=== PATIENT | female | born 1990 | race Caucasian/White ===

== ENCOUNTER 2019-06-02 22:22 | Emergency (ER) | payer SELFPAY ==
[~2019-06-02] VITALS: Ht 154.9 cm; Wt 51.0 kg
[~2019-06-02 22:22] MED LIST: DIPH25CA58 PO; MEDR150D3 IM; METH-37 PO; NAPR-514 PO
--- NOTE | 2019-06-02 22:27 | ED.ADGEN ---
Past History Past Medical History: STD Past Surgical History: Smoking: Non-smoker Alcohol Use: None Drug Use: None Adult General Chief Complaint Chief Complaint ".. I was in bed the other night... Sunday.. and I felt something bite me.. and I slapped it.. .. I never seen what it was .. but the spot started itching Sunday.. and today.. it is red.. and got these little blisters.." HPI HPI Patient is a 28 year old female who presents with above hx and complaints of insect bite on left posterior leg. Areas developed a quarter-sized erythemic blister area. Appearance is somewhat consistent with a brown recluse bite. No striations. No adenopathy. Patient does not remember her last tetanus but has been in excess of 10 years. Patient denies any history of immunosuppression. No history of ill contacts. No history of travel. Review of Systems Review of Systems Constitutional: Denies fever or chills [] Eyes: Denies change in visual acuity, redness, or eye pain [] HENT: Denies nasal congestion or sore throat [] Respiratory: Denies cough or shortness of breath [] Cardiovascular: No additional information not addressed in HPI [] GI: Denies abdominal pain, nausea, vomiting, bloody stools or diarrhea [] : Denies dysuria or hematuria [] Musculoskeletal: Denies back pain or joint pain [] Integument: Complaints of insect bite Neurologic: Denies headache, focal weakness or sensory changes [] Endocrine: Denies polyuria or polydipsia [] All other systems were reviewed and found to be within normal limits, except as documented in this note. Family History Family History Noncontributory Current Medications Current Medications Current Medications Medications (Trade) Dose Ordered Sig/Jossy Start Time Stop Time Status Last Admin Dose Admin Bacitracin (Bacitracin Topical Pkt) 1 pkt 1X ONCE 06/02/19 23:30 06/03/19 00:01 DC Diphtheria/ Tetanus/Acell Pertussis (Boostrix) 0.5 ml ONCE ONCE 06/02/19 23:30 06/02/19 23:31 DC Neomycin/ Polymyxin/ Bacitracin (Triple Antibiotic Ointment) 1 pkt 1X ONCE 06/03/19 00:00 06/03/19 00:54 DC 06/03/19 00:06 1 PKT Trimethoprim/ Sulfamethoxazole (Bactrim Ds) 1 tab 1X ONCE 06/02/19 23:30 06/02/19 23:31 DC 06/03/19 00:06 1 TAB Allergies Allergies Allergies Coded Allergies Type Severity Reaction Last Updated Verified No Known Drug Allergies 03/12/14 No Physical Exam Physical Exam Constitutional: Well developed, well nourished, no acute distress, non-toxic appearance. [] HENT: Normocephalic, atraumatic, bilateral external ears normal, oropharynx moist, no oral exudates, nose normal. [] Eyes: PERRLA, EOMI, conjunctiva normal, no discharge. [] Neck: Normal range of motion, no tenderness, supple, no stridor. [] Cardiovascular:Heart rate regular rhythm, no murmur [] Lungs & Thorax: Bilateral breath sounds clear to auscultation [] Abdomen: Bowel sounds normal, soft, no tenderness, no masses, no pulsatile masses. [] Skin: Warm, dry, no erythema, quarter size red blistered lesion posterior left thigh. Back: No tenderness, no CVA tenderness. [] Extremities: No tenderness, no cyanosis, no clubbing, ROM intact, no edema. [] Neurologic: Alert and oriented X 3, normal motor function, normal sensory function, no focal deficits noted. [] Psychologic: Affect anxious, judgement normal, mood normal. [] Current Patient Data Vital Signs Vital Signs Date Time Temp Pulse Resp B/P (MAP) Pulse Ox O2 Delivery O2 Flow Rate FiO2 06/03/19 00:15 70 18 114/71 (85) 100 Room Air 06/02/19 22:22 98.5 EKG EKG [] Radiology/Procedures Radiology/Procedures [] Course & Med Decision Making Course & Med Decision Making Pertinent Labs and Imaging studies reviewed. (See chart for details). Patient she apply Polysporin to bite area 4 times a day. Take Bactrim DS twice day. Follow-up primary care. Return if any concerns. Take Tylenol or ibuprofen for discomfort. Take Benadryl 25-50 mg 4 times a day for itching. [] Final Impression Final Impression 1. Insect bite suspect Brown recluse 2. Cellulitis[] Dragon Disclaimer Dragon Disclaimer This electronic medical record was generated, in whole or in part, using a voice recognition dictation system. Dragon Disclaimer This chart was dictated in whole or in part using Voice Recognition software in a busy, high-work load, and often noisy Emergency Department environment. It may contain unintended and wholly unrecognized errors or omissions. NIKO HARTMAN MD Jun 02, 2019 22:27
[2019-06-02] MEDS ORDERED: SULF1TAB24 PO (23:11)
[2019-06-02] MEDS ORDERED: DIPHTH,PERTUSS(ACELL),TET TOX 0.5 ML DISP.SYRIN. VAX IM ONE (23:30)
[2019-06-02] MEDS ORDERED: BACITRACIN ZINC TOPICAL OINT PACKET. TP ONE (23:30)
[2019-06-02] MEDS ORDERED: SMZ/TMP 800/160MG TABLET. PO ONE (23:30)
[2019-06-02] MEDS ORDERED: NEOMY/BACITR/POLYMYXIN OINT PACKET. TP ONE (23:58)
[2019-06-03] MEDS ORDERED: NEOMY/BACITR/POLYMYXIN OINT PACKET. TP ONE
[2019-06-03 00:15] VITALS: BP 114/71
== END 2019-06-03 00:15 | disposition home or self-care (01) ==
LOC: ER 22:22
DX: T63.331A Toxic effect of venom of brown recluse spider, accidental (unintentional), initial encounter (principal); L03.116 Cellulitis of left lower limb; Y92.89 Other specified places as the place of occurrence of the external cause
CPT/HCPCS: 99283

== ENCOUNTER 2019-06-07 15:23 | Emergency (ER) | payer SELFPAY ==
[~2019-06-07] VITALS: Ht 154.9 cm; Wt 51.0 kg
[~2019-06-07 15:23] MED LIST changes: +SULF1TAB24 PO
[2019-06-07 15:32] VITALS: BP 107/58
[2019-06-07] MEDS ORDERED: HYDR25TA PO (15:56)
[2019-06-07] MEDS ORDERED: MELO7.5T29 PO (15:56)
--- NOTE | 2019-06-07 15:56 | PHYS DOC ---
Past History Past Medical History: No Pertinent History Past Surgical History: Smoking: Non-smoker Alcohol Use: None Drug Use: None Adult General Chief Complaint Chief Complaint: INSECT BITE HPI HPI Patient is a 28-year-old female presents for follow-up of a "spider bite" that happened approximately a week ago. She was seen approximately 5 days ago and started on Bactrim for this. She is been treating with Neosporin antibiotic ointment and keeping the wound covered since that time. She is concerned because it is not significantly improving. There is watery drainage. No fever. No difficulty breathing. No abdominal cramping. No purulent drainage.[] Review of Systems Review of Systems Constitutional: Denies fever or chills [] Eyes: Denies change in visual acuity, redness, or eye pain [] HENT: Denies nasal congestion or sore throat [] Respiratory: Denies cough or shortness of breath [] Cardiovascular: No chest pain or palpitations[] GI: Denies abdominal pain, nausea, vomiting, bloody stools or diarrhea [] : Denies dysuria or hematuria [] Musculoskeletal: Denies back pain or joint pain [] Integument: See history of present illness[] Neurologic: Denies headache, focal weakness or sensory changes [] Endocrine: Denies polyuria or polydipsia [] All other systems were reviewed and found to be within normal limits, except as documented in this note. Allergies Allergies Allergies Coded Allergies Type Severity Reaction Last Updated Verified No Known Drug Allergies 03/12/14 No Physical Exam Physical Exam Constitutional: Well developed, well nourished, no acute distress, non-toxic appearance. [] HENT: Normocephalic, atraumatic, bilateral external ears normal, oropharynx moist, no oral exudates, nose normal. [] Eyes: PERRLA, EOMI, conjunctiva normal, no discharge. [] Neck: Normal range of motion, no tenderness, supple, no stridor. [] Cardiovascular:Heart rate regular rhythm, no murmur [] Lungs & Thorax: Bilateral breath sounds clear to auscultation [] Abdomen: Bowel sounds normal, soft, no tenderness, no masses, no pulsatile masses. [] Skin: Warm, dry, there is a 1 cm diameter region of vesicles posterior medial aspect of her left thigh. There is no inguinal lymphadenopathy. Watery drainage. No purulent drainage. Local erythema. Mild induration, no abscess. [] Back: No tenderness, no CVA tenderness. [] Extremities: No tenderness, no cyanosis, no clubbing, ROM intact, no edema. [] Neurologic: Alert and oriented X 3, normal motor function, normal sensory function, no focal deficits noted. [] Psychologic: Affect normal, judgement normal, mood normal. [] Current Patient Data Vital Signs Vital Signs Date Time Temp Pulse Resp B/P (MAP) Pulse Ox O2 Delivery O2 Flow Rate FiO2 06/07/19 15:32 98.6 84 18 97 Room Air EKG EKG [] Radiology/Procedures Radiology/Procedures [] Course & Med Decision Making Course & Med Decision Making Pertinent Labs and Imaging studies reviewed. (See chart for details) Medical decision making: There is no abscess, no evidence of black nor brown recluse envenomation, staph scalded skin syndrome, toxic epidermal necrolysis, nor Alex-Ryan syndrome. This may have been triggered by an insect and will provide antihistamine therapy. We'll also provide nonsteroidal anti-inflammatory medication for inflammatory processes rather than pain. Will have patient continue her current antibiotic therapy. Medical decision making: Patient arrived, was placed in bed, and tolerated exam well. Findings were discussed with the patient who voiced understanding. All questions were answered. She was discharged in improved condition.[] Dragon Disclaimer Dragon Disclaimer This electronic medical record was generated, in whole or in part, using a voice recognition dictation system. Departure Departure: Impression: Primary Impression: Insect bite Disposition: HOME, SELF-CARE Condition: IMPROVED Referrals: PCP,RANJIT (PCP) Patient Instructions: Insect Bite, Spider Bite Additional Instructions: Follow-up with your regular doctor in 2 days. If you do not have a regular doctor a list of local clinics will be provided. Continue your antibiotic as prescribed. Add the additional medicines from today, and take as prescribed. Return to the ER if you develop purulent drainage, fever of more than 101�, or any other concerns. Scripts Meloxicam (MELOXICAM) 7.5 Mg Tablet 7.5 MG PO DAILY for anti-inflammatory, #20 TAB Prov: LIZ BROWN DO 06/07/19 Hydroxyzine Hcl (HYDROXYZINE HCL) 25 Mg Tablet 1 TAB PO TID for antihistamine, #30 TAB Prov: LIZ BROWN DO 06/07/19 Problem Qualifiers Primary Impression: Insect bite Encounter type: subsequent encounter Site of insect bite: thigh Laterality: left Qualified Codes: S70.362D - Insect bite (nonvenomous), left thigh, subsequent encounter; W57.XXXD - Bitten or stung by nonvenomous insect and other nonvenomous arthropods, subsequent encounter LIZ BROWN DO Jun 07, 2019 15:56
== END 2019-06-07 16:02 | disposition home or self-care (01) ==
LOC: ER 15:23
DX: T63.301D Toxic effect of unspecified spider venom, accidental (unintentional), subsequent encounter (principal)
CPT/HCPCS: 99283

== ENCOUNTER 2019-10-20 08:21 | Emergency (ER) | payer SELFPAY ==
[~2019-10-20] VITALS: Ht 154.9 cm; Wt 51.0 kg
[~2019-10-20 08:21] MED LIST changes: +HYDR25TA PO; +MELO7.5T29 PO
--- NOTE | 2019-10-20 09:08 | RAD ---
EXAM: Left ankle, 3 views. HISTORY: Fall. COMPARISON: None. FINDINGS: 3 views of the left ankle are obtained. There is no fracture, dislocation or subluxation. The ankle mortise is intact. There is no osteochondral lesion. IMPRESSION: No acute osseous finding. Electronically signed by: Nora Sams MD (10/20/2019 9:05 AM) [facility] [place]
--- NOTE | 2019-10-20 09:15 | PHYS DOC ---
Past History Past Medical History: No Pertinent History Past Surgical History: Smoking: Non-smoker Alcohol Use: None Drug Use: None Adult General Chief Complaint Chief Complaint: LOWEREXTREMITY INJURY [facility] HPI 29-year-old female presents with left lateral ankle pain. The patient was walking up some steps when she slipped and fell. She rolled her foot medially. She felt like she heard/felt a popping sensation. She was able to walk after that. She has a limp. She went ahead and went to work. After she got to work it was more painful to walk on it and she became concerned about a more serious injury. This wish came to the emergency room. It is mildly swollen. She denies any other injuries or complaints. Review of Systems Review of Systems Constitutional: Denies fever or chills [] Eyes: Denies change in visual acuity, redness, or eye pain [] HENT: Denies nasal congestion or sore throat [] Respiratory: Denies cough or shortness of breath [] Cardiovascular: No additional information not addressed in HPI [] GI: Denies abdominal pain, nausea, vomiting, bloody stools or diarrhea [] : Denies dysuria or hematuria [] Musculoskeletal: Left lateral ankle pain[] Integument: Denies rash or skin lesions [] Neurologic: Denies headache, focal weakness or sensory changes [] Endocrine: Denies polyuria or polydipsia [] All other systems were reviewed and found to be within normal limits, except as documented in this note. Allergies Allergies Allergies Coded Allergies Type Severity Reaction Last Updated Verified No Known Drug Allergies 03/12/14 No Physical Exam Physical Exam Constitutional: Well developed, well nourished, no acute distress, non-toxic appearance. [] HENT: Normocephalic, atraumatic, bilateral external ears normal, oropharynx moist, no oral exudates, nose normal. [] Eyes: PERRLA, EOMI, conjunctiva normal, no discharge. [] Neck: Normal range of motion, no tenderness, supple, no stridor. [] Cardiovascular:Heart rate regular rhythm, no murmur [] Lungs & Thorax: Bilateral breath sounds clear to auscultation [] Abdomen: Bowel sounds normal, soft, no tenderness, no masses, no pulsatile masses. [] Skin: Warm, dry, no erythema, no rash. [] Back: No tenderness, no CVA tenderness. [] Extremities: Tenderness over the left ATFL. Mild swelling, no ecchymosis or obvious deformity.[] Neurologic: Alert and oriented X 3, normal motor function, normal sensory functi on, no focal deficits noted. [] Psychologic: Affect normal, judgement normal, mood normal. [] Current Patient Data Vital Signs Vital Signs Date Time Temp Pulse Resp B/P (MAP) Pulse Ox O2 Delivery O2 Flow Rate FiO2 10/20/19 08:40 74 18 105/55 (72) 100 EKG EKG [] Radiology/Procedures Radiology/Procedures [] Course & Med Decision Making Course & Med Decision Making Pertinent Labs and Imaging studies reviewed. (See chart for details) [] Dragon Disclaimer Dragon Disclaimer This electronic medical record was generated, in whole or in part, using a voice recognition dictation system. Departure Departure: Impression: Primary Impression: Left ankle sprain Disposition: HOME, SELF-CARE Condition: STABLE Referrals: PCP,NO (PCP) Patient Instructions: Ankle Sprain, Acute, with Phase I Rehab-SportsMed Problem Qualifiers Primary Impression: Left ankle sprain Encounter type: initial encounter Involved ligament of ankle: anterior talofibular ligament Qualified Codes: S93.492A - Sprain of other ligament of left ankle, initial encounter ASTER FUNK DO Oct 20, 2019 09:15
== END 2019-10-20 09:16 | disposition home or self-care (01) ==
LOC: ER 08:21
DX: S93.402A Sprain of unspecified ligament of left ankle, initial encounter (principal); W01.0XXA Fall on same level from slipping, tripping and stumbling without subsequent striking against object, initial encounter; Y93.01 Activity, walking, marching and hiking; Y92.89 Other specified places as the place of occurrence of the external cause; Y99.8 Other external cause status
CPT/HCPCS: 73610; 99284

== ENCOUNTER 2020-05-09 18:20 | Emergency (ER) | payer MEDICAID ==
[~2020-05-09] VITALS: Ht 154.9 cm; Wt 51.8 kg
[2020-05-09 18:20] VITALS: BP 105/67
--- NOTE | 2020-05-09 18:40 | PHYS DOC ---
Past History Past Medical History: No Pertinent History Past Surgical History: Smoking: Non-smoker Alcohol Use: None Drug Use: None General Adult EDM: Chief Complaint: FOREIGNBODY EAR HPI: HPI: Patient is a 29 year old female who presents for evaluation of a possible foreign body in her left ear. Patient has large fingernail extensions and was afraid she lost one in her left ear after scratching it. They are salmon-colored. This injury occurred about 1 hour prior to arrival. Patient has no bleeding or discharge from the ear. Patient does not have any hearing changes Review of Systems: Review of Systems: Constitutional: Denies fever or chills Eyes: Denies change in visual acuity HENT: Denies nasal congestion or sore throat Respiratory: Denies cough or shortness of breath Cardiovascular: Denies chest pain or edema GI: Denies abdominal pain, nausea, vomiting, bloody stools or diarrhea : Denies dysuria Musculoskeletal: Denies back pain or joint pain Integument: Denies rash Neurologic: Denies headache, focal weakness or sensory changes Endocrine: Denies polyuria or polydipsia Lymphatic: Denies swollen glands Psychiatric: Denies depression or anxiety Heart Score: Risk Factors: Risk Factors: DM, Current or recent (<one month) smoker, HTN, HLP, family history of CAD, obesity. Risk Scores: Score 0 - 3: 2.5% MACE over next 6 weeks - Discharge Home Score 4 - 6: 20.3% MACE over next 6 weeks - Admit for Clinical Observation Score 7 - 10: 72.7% MACE over next 6 weeks - Early Invasive Strategies Allergies: Allergies: Allergies Coded Allergies Type Severity Reaction Last Updated Verified No Known Drug Allergies 03/12/14 No Physical Exam: PE: Constitutional: Well developed, well nourished, no acute distress, non-toxic appearance. [] HENT: Normocephalic, atraumatic, bilateral external ears normal, oropharynx moist, no oral exudates, nose normal, bilateral tympanic membranes clear, there is no foreign body seen in the left ear in particular. Tympanic membrane is intact with no bleeding, no obvious scratches or perforation seen [] Eyes: PERRL, EOMI, conjunctiva normal, no discharge. [] Neck: Normal range of motion, no tenderness, supple. [] Cardiovascular:Heart rate regular rhythm, no murmur [] Lungs & Thorax: Bilateral breath sounds clear to auscultation [] Abdomen: Bowel sounds normal, soft, no tenderness, no masses, no pulsatile masses. [] Skin: Warm, dry, no erythema. [] Back: No tenderness. [] Extremities: No tenderness, no cyanosis, no edema. [] Neurologic: Alert and oriented, normal motor function, no focal deficits noted. [] Psychologic: Affect normal, judgement normal, mood normal. [] EKG: EKG: [] Radiology/Procedures: Radiology/Procedures: [] Course & Med Decision Making: Course & Med Decision Making Pertinent Labs and Imaging studies reviewed. (See chart for details) [] Dragon Disclaimer: DragMed[employer] Disclaimer: This electronic medical record was generated, in whole or in part, using a voice recognition dictation system. 183 thorough examination of left ear canal did not show any foreign body. Patient had a bright covered nail that would have easily been seen. Tympanic membrane is intact and there is no bleeding or signs of perforation. There is no drainage coming from the ear. Patient's feared condition is not present Departure Departure: Impression: Primary Impression: Condition not found Additional Impression: Left ear pain Disposition: HOME/RESIDENCE PRIOR TO ADM Condition: STABLE Referrals: KANA GUTIERREZ (PCP) Patient Instructions: Ear Foreign Body, [id number] Additional Instructions: No nail or other foreign body was seen in your left ear canal. Should you develop discharge, pain, bleeding etc. have it rechecked but I do not see anything present in the canal Justification of Admission: Justification of Admission: Justification of Admission Dx: N/A MARIA VICTORIA ZAPATA DO May 09, 2020 18:40
== END 2020-05-09 18:50 | disposition home or self-care (01) ==
LOC: ER 18:20
DX: H92.02 Otalgia, left ear (principal); Z71.1 Person with feared health complaint in whom no diagnosis is made
CPT/HCPCS: 99281